=== PATIENT | male | born 1990 | race Two or more races ===

== ENCOUNTER 2019-02-04 19:32 | Emergency (ER) | payer OTHER ==
[~2019-02-04] VITALS: Ht 177.8 cm; Wt 95.3 kg
[2019-02-05 01:42] VITALS: BP 142/84
[2019-02-05] MEDS ORDERED: IBUPROFEN 800 MG TAB PO ONE (01:45)
== END 2019-02-05 02:51 | disposition home or self-care (01) ==
LOC: ER 19:41
DX: S93.401A Sprain of unspecified ligament of right ankle, initial encounter (principal); X50.1XXA Overexertion from prolonged static or awkward postures, initial encounter; Y93.89 Activity, other specified; Y92.89 Other specified places as the place of occurrence of the external cause; Y99.0 Civilian activity done for income or pay
CPT/HCPCS: 73610; 73630